=== PATIENT | male | born 1975 | race Caucasian/White ===

== ENCOUNTER 2016-11-28 09:08 | Emergency (ER) | payer MEDICARE, MEDICAID ==
--- NOTE | 2016-11-28 11:17 | RAD ---
TWO VIEWS CHEST: HISTORY: A 41-year-old male with a productive cough. FINDINGS: PA and lateral views of the chest are obtained. The lungs are well aerated. No evidence of active intrathoracic disease is seen. No evidence of ef fusions, pneumonia, or pneumothorax is seen. IMPRESSION: Unremarkable two views chest. POS: [facility]
== END 2016-11-28 16:08 | disposition home or self-care (01) ==
LOC: ERS 09:08
DX: R05 Cough (principal); C95.91 Leukemia, unspecified, in remission; Z92.21 Personal history of antineoplastic chemotherapy; Z79.899 Other long term (current) drug therapy
CPT/HCPCS: 71020

== ENCOUNTER 2017-09-11 16:08 | Emergency (ER) | payer MEDICARE, MEDICAID ==
[2017-09-11] MEDS ORDERED: diphenhydrAMINE 25 MG CAP ONE (16:38)
[2017-09-11] MEDS ORDERED: Famotidine 20 MG TAB ONE ×2 (16:38)
[2017-09-11] MEDS ORDERED: Dexamethasone 4 mg/ml Vial ONE (16:38)
[2017-09-11] MEDS ORDERED: diphenhydrAMINE 50 MG/ML VIAL ONE (16:38)
--- NOTE | 2017-09-11 16:59 | RAD ---
SINGLE VIEW OF THE PELVIS: 09/11/17 COMPARISON: None. HISTORY: Fall yesterday with left hip pain. FINDINGS: Single view of the pelvis shows no evidence of acute fracture or dislocation. No degenerative changes are seen. No focal soft tissue swelling is seen. IMPRESSION: Unremarkable exam. POS: [facility]
== END 2017-09-11 17:54 | disposition home or self-care (01) ==
LOC: ERS 16:08
DX: S70.02XA Contusion of left hip, initial encounter (principal); T78.40XA Allergy, unspecified, initial encounter; Z85.6 Personal history of leukemia; Z79.899 Other long term (current) drug therapy; W19.XXXA Unspecified fall, initial encounter
CPT/HCPCS: 72170; J1100; J1200

== ENCOUNTER 2019-08-20 14:39 | Emergency (ER) | payer MEDICARE, MEDICAID ==
[2019-08-20 15:18] LABS: #Basophils 0.1 thou/uL (0.0-0.2); #Lymphocytes 1.8 thou/uL (1.20-3.40); #Monocytes 0.3 thou/uL (0.11-0.59); #Neutrophils 2.5 thou/uL (1.40-6.50); %Basophils 1.3 % (0.0-1.0); %Eosinophils 0.9 % (0.0-10.0); %Lymphocytes 38.5 % (21.0-51.0); %Neutrophils 52.2 % (42.0-75.0); Hemoglobin 12.4 g/dL (14.0-18.0); Mean Corpuscular Hemoglobin 29.7 pg (27.0-31.0); Mean Corpuscular Volume 90.3 fL (78.0-98.0); Mean Platelet Volume 8.6 fL (7.4-10.4); Platelet Count 106 thou/uL (130-400); RBC Distribution Width 11.8 % (11.5-14.5); Red Blood Cell (RBC) Count 4.16 mill/uL (4.70-6.10); White Blood Cell (WBC) Count 4.8 thou/uL (4.8-10.8)
[2019-08-20 15:36] LABS: ALT (SGPT) 16 U/L (8-55); AST (SGOT) 15 U/L (5-34); Albumin 4.7 g/dL (3.5-5.0); Alkaline Phosphatase 93 U/L (40-110); Anion Gap 11 mmol/L (10-20); BUN (Urea Nitrogen) 13 mg/dL (8.9-20.6); Bilirubin, Total 0.6 mg/dL (0.2-1.2); Calc. Creatinine Clearance 0 mL/min (70-130); Carbon Dioxide 31 mmol/L (22-29); Chloride 103 mmol/L (98-107); Estimated GFR-MDRD 87; Globulin 3.2 g/dL (2.4-3.5); Glucose 100 mg/dL (70-105); Potassium 4.2 mmol/L (3.5-5.1); Protein, Total 7.9 g/dL (6.0-8.3); Sodium 141 mmol/L (136-145)
[2019-08-20] MEDS ORDERED: Ondansetron ODT 4 MG TAB ONE (16:16)
== END 2019-08-20 16:56 | disposition home or self-care (01) ==
LOC: ERS 14:39
DX: R11.2 Nausea with vomiting, unspecified (principal); Z79.899 Other long term (current) drug therapy; Z85.6 Personal history of leukemia
CPT/HCPCS: 36415; 80053; 83690; 85025; 99284; Q0162

== ENCOUNTER 2019-12-10 01:45 | Emergency (ER) | payer MEDICARE, MEDICAID ==
--- NOTE | 2019-12-10 11:13 | RAD ---
PORTABLE CHEST: HISTORY: Cough and congestion. COMPARISON: A 11/28/2016 study, most recent exam available for comparison. FINDINGS: Heart size appears slightly enlarged. Pulmonary vessels appear mildly engorged. Some slightly incre ased markings in the lung bases are present. IMPRESSION: 1. Cardiomegaly with mild vascular engorgement. 2. Vague patchy opacities in both lung bases. Cannot definitely exclude this is early ground-glass infiltrative lung change versus atelectatic change. POS: [facility]
== END 2019-12-10 02:24 | disposition home or self-care (01) ==
LOC: ERS 01:45
DX: R05 Cough (principal); C92.01 Acute myeloblastic leukemia, in remission; Z79.899 Other long term (current) drug therapy
CPT/HCPCS: 71045

== ENCOUNTER 2024-11-04 09:25 | Emergency (ER) | payer MEDICARE, MEDICAID | END 2024-11-04 10:33 | disposition home or self-care (01) | LOC: ERS 09:25 | DX: H10.9 Unspecified conjunctivitis (principal) | CPT/HCPCS: 99283 ==